=== PATIENT | female | born 1975 | race Caucasian/White ===

== ENCOUNTER 2019-03-27 20:47 | Emergency (ER) | payer SELFPAY ==
--- NOTE | 2019-03-27 20:48 | XR_ITS ---
WS: [id number] SHOULDER RIGHT TECHNIQUE: 3 views of the right shoulder CLINICAL INFORMATION: injury COMPARISON: None. FINDINGS: Normal acromioclavicular joint. Normal glenohumeral joint. Acromion is normal in appearance. Normal g lenoid. No evidence of acute fracture dislocation. XR/XR shoulder RT min 2V* [id number] IMPRESSION: Normal right shoulder.
[2019-03-27 21:14] VITALS: BP 154/103; PULSE 92; RESP 18; TEMP 36.6; O2SAT 95; BMI 37.2
--- NOTE | 2019-03-28 00:07 | ED_ITS ---
Entered by Estela Lowry, acting as scribe for Shy Childress MD Mar 27, 2019 20:47 HPI - Extremity Problem General: Chief complaint: Extremity Injury, Upper Stated complaint: FALL/R SHOULDER PAIN Time Seen by Provider: 03/28/19 00:06 Source: patient and EMS Mode of arrival: EMS Limitations: no limitations History of Present Illness: HPI Narrative: 43 y/o female presents to the ED with complaint of right shoulder pain. Pt states she slipped in the mud around 2029 and landed on her shoulder and her breast. Pt states she had breast reduction in October 2018 and she still has some soreness from that. MD Complaint: extremity pain Onset (ago): hour(s) Pain Consistency: constant Location: right and upper extremity Associated symptoms: Deny chest pain or fever(s) Review of Systems Const: Denies: fever or chills Eyes: Denies: change in vision ENMT: Denies: throat pain or mouth pain Card: Denies: chest pain Resp: Denies: shortness of breath GI: Denies: abdominal pain, nausea, vomiting or diarrhea : Denies: difficulty urinating Musc: Denies: back pain or joint pain Skin/Breast: Reports: surgical incision and breast pain (right) Neuro: Denies: headache or behavioral changes Psych: Denies: depression Endo: Denies: excessive urination Marcel/Lymph: Denies: easy bruising All/Imm: Denies: hives PFSH ED PFSH: Statuses (acute, chronic, etc) shown below reflect problem list status as previously entered and may not be historically accurate Social History Smoking and tobacco status: never smoked Physical Exam Const: COMMON NORMALS: no apparent distress, oriented x3 and healthy appearing HENMT: COMMON NORMALS: normocephalic and external nose normal HEAD & SCALP: normocephalic NOSE: external nose normal Eye: COMMON NORMALS: PERRL PUPIL: Yes PERRL Neck/C-Spine: COMMON NORMALS: no lymphadenopathy CERVICAL SPINE: Yes cervical ROM abnormal Resp: COMMON NORMALS: normal respiratory effort, no use of accessory muscles and clear to auscultation bilaterally AUSCULTATION: clear to auscultation bilaterally Cardio: COMMON NORMALS: regular rate and regular rhythm RATE: regular rate RHYTHM: regular rhythm GI: COMMON NORMALS: normal to inspection, nondistended, normoactive bowel sounds, soft to palpation, non-tender and no masses PALPATION: Yes soft Back/Pelvis: THORACIC SPINE/UPPER BACK: Yes normal to inspection Extremity: COMMON NORMALS: normal to inspection, full ROM and normal capillary refill NARRATIVE EXTREMITY EXAM: Tenderness over right shoulder with no obvious deformity right breast is painful to touch with no signs of injury at this time. Neuro: COMMON NORMALS: oriented x3 Psych: COMMON NORMALS: mental status grossly normal and cooperative Skin: COMMON NORMALS: no rashes or lesions noted GENERAL SKIN EXAM: no rashes or lesions noted Course Vital Signs: Vital signs: Vital Signs Temperature 97.9 F 03/27/19 21:14 Pulse Rate 92 03/27/19 21:14 Respiratory Rate 18 03/27/19 21:14 Blood Pressure 154/103 03/27/19 21:14 Pulse Oximetry 95 03/27/19 21:14 MDM - Extremity (Nontraumatic) Imaging Data^: xr right shoulder: Attestation: I personally reviewed and interpreted this imaging study as follows: My impression: Patient presents here with right shoulder pain that is likely muscular in nature. Patient x-ray shows no fracture at this time. Patient is stable for discharge will place in a sling and she is to follow-up with primary care doctor in 3 to 5 days return if worsening Discharge Plan Discharge Patient Disposition: Home, Self-Care Clinical Impression: Breast pain Left shoulder strain Qualifiers: Encounter type: initial encounter Qualified Code(s): S46.912A - Strain of unspecified muscle, fascia and tendon at shoulder and upper arm level, left arm, initial encounter Condition: Stable Prescriptions: New Robaxin-750 750 mg tablet 750 mg PO Q6H Qty: 30 RF: 0 EC-Naprosyn 500 mg tablet,delayed release (DR/EC) 500 mg PO BID PRN (Reason: pain) Qty: 20 RF: 0 [place] 5-325 mg tablet 1 tab PO Q6H PRN (Reason: pain) Qty: 14 RF: 0 Discharge Orders: Discharge Order (Routine); Ordered 03/28/19 Ordered By: Shy Childress Referrals: Steve Fernandez MD [Family Provider] - 4-7 days Discharge Diet: Advance as tolerated Discharge Activity: Resume usual activity Patient Instructions: Shoulder Sprain (ED) Coding Level of Care Code ED Monorail Operator for Chg Fwd Exam Problem Focused The documentation recorded by the joeyibAlen vitale Ashley, accurately reflects the service I personally performed and the decisions made by me, Shy Childress MD Mar 27, 2019 20:47
[2019-03-28 00:38] VITALS: PULSE 87; PULSE 98; RESP 18; O2SAT 98
[2019-03-28] MEDS: ondansetron 4 MG Tablet PO (00:50)
[2019-03-28] MEDS: ketorolac 60 mg/2 mL INJ IM (00:50)
[2019-03-28 01:11] VITALS: BP 138/84; PULSE 85; RESP 17; TEMP 36.9; O2SAT 98
== END 2019-03-28 01:12 | disposition home or self-care (01) ==
PROVIDERS: Emergency Provider Emergency Medicine; Family Provider Family Medicine
DX: S46.912A Strain of unspecified muscle, fascia and tendon at shoulder and upper arm level, left arm, initial encounter (principal); N64.4 Mastodynia; W01.0XXA Fall on same level from slipping, tripping and stumbling without subsequent striking against object, initial encounter
CPT/HCPCS: 73030; 96372; 99281; J1885; Q0162

== ENCOUNTER 2022-10-09 11:00 | Outpatient (CLI) | payer OTHER, SELFPAY | END 2022-10-09 11:01 | disposition home or self-care (01) | LOC: SLEEP 10-10 12:21 | PROVIDERS: Family Provider Family Medicine; Visit Provider Nurse Practitioner Family | DX: G47.10 Hypersomnia, unspecified (principal); G47.33 Obstructive sleep apnea (adult) (pediatric) | CPT/HCPCS: G0399 ==